=== PATIENT | male | born 1970 | race Caucasian/White ===

== ENCOUNTER 2018-03-29 15:04 | Emergency (ER) | payer SELFPAY ==
[2018-03-29] MEDS ORDERED: TETANUS & DIPHTHERIA TOX,ADULT 0.5 ML VIAL ONE (16:28)
[2018-03-29] MEDS ORDERED: HYDROCODONE/APAP 5/325 MG TAB ONE (16:28)
--- NOTE | 2018-03-29 17:15 | RAD REPORT ---
EXAM DESCRIPTION: RAD - Forearm Left - 03/29/2018 4:30 pm CLINICAL HISTORY: Fall, arm pain COMPARISON: None. FINDINGS: No fracture is identified. No dislocation or periosteal reaction. Advanced degenerative ch anges are present at the wrist joint only partially assessed on this study. No elevation of the poste rior fat pad at the elbow joint. No foreign body or other soft tissue abnormality. IMPRESSION: No fracture or acute forearm finding. Prominent degenerative change present at the wrist .
--- NOTE | 2018-03-29 17:19 | RAD REPORT ---
EXAM DESCRIPTION: RAD - Hand Left 3 View - 03/29/2018 4:29 pm CLINICAL HISTORY: Tree branch striking hand limited COMPARISON: None. FINDINGS: No acute fracture involving the phalanges or metacarpal bones. Prominent degenerative jerry ges are present in the second and third PIP joints. Advanced degenerative changes present at the firs t carpal -metacarpal articulation. Patient has advanced degenerative change in the carpal bones primarily involving the scaphoid and quin ate bones. Radiocarpal joint space is significantly narrowed. The scaphoid and lunate bones are seen is 3 fragmented bones rather than 2 bones. The metal fragment is suspected to be from the scaphoid. T here degenerative changes to all 3 bony structures. 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 An acute process is not suspected. Degenerative calcification is present along the dorsum of the wrist. Proximal aspect of the capitate is in close proximity to the radial articular laurent rface. No air or foreign body in the soft tissues. There is soft tissue swelling over the dorsum of the hand and wrist. IMPRESSION: No acute fracture changes seen. 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 No a cute component seen. Findings are detailed in the body of the report.
--- NOTE | 2018-03-29 17:44 | ER ---
Nurse's Notes [facility] Name: Andres Denton Age: 48 yrs Sex: Male : 1970 Arrival Date: 03/29/2018 Time: 15:07 Bed 15 Private MD: None, None Diagnosis: Contusion of left forearm;Abrasion of left forearm;Contusion of left hand;Abrasion of left hand Presentation: 03/29 15:15 Presenting complaint: Patient states: "a tree fell onto my arm". Pt c/o left arm pain, aa5 deformity noted to left FA, abrasions noted to left arm. Transition of care: patient was not received from another setting of care. Onset of symptoms was March 29, 2018. Risk Assessment: Do you want to hurt yourself or someone else? Patient reports no desire to harm self or others. Initial Sepsis Screen: Does the patient meet any 2 criteria? No. Patient's initial sepsis screen is negative. Does the patient have a suspected source of infection? No. Patient's initial sepsis screen is negative. Care prior to arrival: None. 15:15 Method Of Arrival: Ambulatory aa5 15:15 Acuity: ROBBY 3 aa5 Triage Assessment: 16:30 General: Appears in no apparent distress. comfortable. ch 16:30 General: Behavior is calm, cooperative, appropriate for age. Injury Description: ch Abrasion sustained to left hand and left forearm and left wrist. Historical: - Allergies: 15:17 No Known Allergies; aa5 - PMHx: 15:17 None; aa5 - PSHx: 15:17 Appendectomy; aa5 - Immunization history:: Last tetanus immunization: unknown. - Social history:: Smoking status: Patient uses tobacco products, smokes one pack cigarettes per day. - Ebola Screening: : No symptoms or risks identified at this time. Screenin:00 Abuse screen: Denies threats or abuse. Denies injuries from another. Nutritional ch screening: No deficits noted. Tuberculosis screening: No symptoms or risk factors identified. Fall Risk None identified. Assessment: 17:21 General: Appears in no apparent distress. comfortable, Behavior is calm, cooperative, ch appropriate for age. Pain: Complains of pain in left wrist, palmar aspect of left forearm and left forearm Pain currently is 6 out of 10 on a pain scale. Pain began suddenly. Neuro: No deficits noted. Respiratory: Airway is patent Breath sounds are clear bilaterally. GI: No signs and/or symptoms were reported involving the gastrointestinal system. Derm: Skin is pink, warm \\T\\ dry. pt has abrasions to L wrist. pt has swelling to L wrist, states it is chronic. Musculoskeletal: Capillary refill < 3 seconds, in bilateral fingers. Range of motion: limited in left wrist Swelling present in dorsum of left hand and dorsal aspect of left wrist. Vital Signs: 15:17 BP 132 / 83; Pulse 85; Resp 16 S; Temp 98.5(TE); Pulse Ox 97% on R/A; Weight 98.43 kg aa5 (R); Height 6 ft. 3 in. (190.50 cm) (R); Pain 6/10; 17:21 BP 126 / 84; Pulse 62; Resp 18; Temp 98.3; Pulse Ox 99% on R/A; Pain 5/10; ch 15:17 Body Mass Index 27.12 (98.43 kg, 190.50 cm) aa5 ED Course: 15:00 Patient has correct armband on for positive identification. Bed in low position. Call ch light in reach. Side rails up X 1. Adult w/ patient. 15:07 Patient arrived in ED. mr 15:07 None, None is Private Physician. mr 15:16 Triage completed. aa5 15:16 Arm band placed on. aa5 15:22 Walter De La Garza NP is PHCP. pm1 15:22 Major Langford MD is Attending Physician. pm1 15:58 Jagruti Amezquita, DARIEL is Primary Nurse. ch 16:28 Hand Left 3 View XRAY In Process Unspecified. EDMS 16:28 Forearm Left XRAY In Process Unspecified. EDMS 18:04 No apparent distress. Resting quietly. ch 18:04 No provider procedures requiring assistance completed. Patient did not have IV access ch during this emergency room visit. Dressings: non-adherent dressing x 2 dorsal aspect of left wrist. Wound care: to abrasion, located on left hand and left arm was cleaned with soap and water, dressed with Neosporin, 4X4s, hitesh wrap, Patient tolerated well. Thermoregulation: warm blanket given to patient. 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 Exp: ch 08/04/2019. Lot #: [id number]. } Route: IM; Site: left deltoid; 17:19 Follow up: Response: No adverse reaction; Marked relief of symptoms 17:15 Drug: [place] 5 mg-325 mg 1 tabs Route: PO; 17:30 Follow up: Response: No adverse reaction Outcome: 17:44 Discharge ordered by MD. pm1 18:05 Discharged to home ambulatory, with family. 18:05 Condition: stable 18:05 Discharge instructions given to patient, family, Instructed on discharge instructions, follow up and referral plans. medication usage, Demonstrated understanding of instructions, follow-up care, medications, Prescriptions given X 1. 18:15 Patient left the ED. Signatures: Dispatcher [employer] EDJagruti Abraham RN RN Kathy Meier Audri RN RN aa5 Walter De La Garza, HAZ TECH HAZ TECH pm1 Corrections: (The following items were deleted from the chart) 03/30 08:03/29 15:00 Abuse screen: Denies threats or abuse. Denies injuries from another. [facility] 03/30 08:03/29 15:00 Nutritional screening: No deficits noted. [facility] 03/30 08:36 03/29 15:00 Tuberculosis screening: No symptoms or risk factors identified. [facility] 03/30 08:03/29 15:00 Fall Risk None identified. [facility]
--- NOTE | 2018-03-29 17:44 | EDPHYS ---
Physician Documentation [facility] Name: Andres Denton Age: 48 yrs Sex: Male : 1970 Arrival Date: 03/29/2018 Time: 15:07 Bed 15 Private MD: None, None ED Physician Major Langford HPI: 03/29 18:00 This 48 yrs old Male presents to ER via Ambulatory with complaints of Arm pm1 Injury. 18:00 The patient or guardian complains of an abrasion, contusion. The complaints affect the pm1 dorsal aspect of left forearm and left hand. Context: The problem was sustained outdoors, at work, resulted from Tree branch fell on his left hand and forearm. Onset: The symptoms/episode began/occurred just prior to arrival. Treatment prior to arrival includes: no previous treatment. Modifying factors: The symptoms are alleviated by nothing. the symptoms are aggravated by nothing. Associated signs and symptoms: Pertinent positives: pain, Pertinent negatives: decreased range of motion, deformity. Severity of symptoms: in the emergency department the symptoms are unchanged. Patient with prior left hand deformity from prior injury multiple years ago. The patient has not recently seen a physician. Patient without any decreased range of motion to left hand and forearm. Historical: - Allergies: 15:17 No Known Allergies; aa5 - PMHx: 15:17 None; aa5 - PSHx: 15:17 Appendectomy; aa5 - Immunization history:: Last tetanus immunization: unknown. - Social history:: Smoking status: Patient uses tobacco products, smokes one pack cigarettes per day. - Ebola Screening: : No symptoms or risks identified at this time. ROS: 18:00 Constitutional: Negative for fever, chills, and weight loss, Eyes: Negative for injury, pm1 pain, redness, and discharge, ENT: Negative for injury, pain, and discharge, Neck: Negative for injury, pain, and swelling, Cardiovascular: Negative for chest pain, palpitations, and edema, Respiratory: Negative for shortness of breath, cough, wheezing, and pleuritic chest pain, Abdomen/GI: Negative for abdominal pain, nausea, vomiting, diarrhea, and constipation, Back: Negative for injury and pain. 18:00 Neuro: Negative for headache, weakness, numbness, tingling, and seizure. 18:00 MS/extremity: Positive for abrasion, pain, of the dorsum of left hand and dorsal aspect of left forearm, Negative for decreased range of motion. 18:00 Skin: Positive for abrasion(s), Negative for laceration(s), puncture. Exam: 18:00 Constitutional: This is a well developed, well nourished patient who is awake, alert, pm1 and in no acute distress. Head/Face: Normocephalic, atraumatic. Eyes: Pupils equal round and reactive to light, extra-ocular motions intact. Lids and lashes normal. Conjunctiva and sclera are non-icteric and not injected. Cornea within normal limits. Periorbital areas with no swelling, redness, or edema. ENT: Nares patent. No nasal discharge, no septal abnormalities noted. Tympanic membranes are normal and external auditory canals are clear. Oropharynx with no redness, swelling, or masses, exudates, or evidence of obstruction, uvula midline. Mucous membranes moist. Neck: Trachea midline, no thyromegaly or masses palpated, and no cervical lymphadenopathy. Supple, full range of motion without nuchal rigidity, or vertebral point tenderness. No Meningismus. Chest/axilla: Normal chest wall appearance and motion. Nontender with no deformity. No lesions are appreciated. Cardiovascular: Regular rate and rhythm with a normal S1 and S2. No gallops, murmurs, or rubs. Normal PMI, no JVD. No pulse deficits. Respiratory: Lungs have equal breath sounds bilaterally, clear to auscultation and percussion. No rales, rhonchi or wheezes noted. No increased work of breathing, no retractions or nasal flaring. Abdomen/GI: Soft, non-tender, with normal bowel sounds. No distension or tympany. No guarding or rebound. No evidence of tenderness throughout. Back: No spinal tenderness. No costovertebral tenderness. Full range of motion. 18:00 Musculoskeletal/extremity: Extremities: grossly normal except: noted in the dorsum of left hand: tenderness. 18:00 Skin: injury, abrasion(s), small abrasion noted, of the dorsum of left hand and dorsal aspect of left forearm. Vital Signs: 15:17 BP 132 / 83; Pulse 85; Resp 16 S; Temp 98.5(TE); Pulse Ox 97% on R/A; Weight 98.43 kg aa5 (R); Height 6 ft. 3 in. (190.50 cm) (R); Pain 6/10; 17:21 BP 126 / 84; Pulse 62; Resp 18; Temp 98.3; Pulse Ox 99% on R/A; Pain 5/10; ch 15:17 Body Mass Index 27.12 (98.43 kg, 190.50 cm) aa5 MDM: 15:23 Patient medically screened. pm1 17:36 Data reviewed: vital signs. Data interpreted: Pulse oximetry: on room air is 99 %. pm1 Interpretation: normal. Counseling: I had a detailed discussion with the patient and/or guardian regarding: the historical points, exam findings, and any diagnostic results supporting the discharge/admit diagnosis, radiology results, the need for outpatient follow up, to return to the emergency department if symptoms worsen or persist or if there are any questions or concerns that arise at home. 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 Exp: 08/04/2019. Lot #: [id number]. } Route: IM; Site: left deltoid; 17:19 Follow up: Response: No adverse reaction; Marked relief of symptoms 17:15 Drug: [place] 5 mg-325 mg 1 tabs Route: PO; 17:30 Follow up: Response: No adverse reaction Disposition: 03/30 08:16 Co-signature as Attending Physician, Major Langford MD I agree with the assessment and camron plan of care. Disposition: 03/29/18 17:44 Discharged to Home. Impression: Contusion of left forearm, Abrasion of left forearm, Contusion of left hand, Abrasion of left hand. - Condition is Stable. - Discharge Instructions: Abrasion, Contusion, Hand Contusion. - Prescriptions for Tramadol 50 mg Oral Tablet - take 1 tablet by ORAL route every 8 hours as needed; 12 tablet. - Work release form, Medication Reconciliation Form, Thank You Letter form. - Follow up: Emergency Department; When: As needed; Reason: Worsening of condition. Follow up: Private Physician; When: 2 - 3 days; Reason: Recheck today's complaints, Continuance of care, Re-evaluation by your physician. - Problem is new. - Symptoms have improved. Signatures: Dispatcher [employer] EDMS Jagruti Amezquita RN RN Major Murillo MD MD cha Calderon, Audri, RN RN aa5 Walter De La Garza NP CENTRAL OFFICE INSPECTOR pm1 Corrections: (The following items were deleted from the chart) 03/29 18:04 17:36 Splint - Wrist ordered. pm1 18:15 17:44 03/29/2018 17:44 Discharged to Home. Impression: Contusion of left forearm; ch Abrasion of left forearm; Contusion of left hand; Abrasion of left hand. Condition is Stable. Forms are Medication Reconciliation Form, Thank You Letter, Antibiotic Education, Prescription Opioid Use. Follow up: Emergency Department; When: As needed; Reason: Worsening of condition. Follow up: Private Physician; When: 2 - 3 days; Reason: Recheck today's complaints, Continuance of care, Re-evaluation by your physician. Problem is new. Symptoms have improved. pm1
== END 2018-03-29 18:15 | disposition home or self-care (01) ==
LOC: ER 15:04
DX: S50.12XA Contusion of left forearm, initial encounter (principal); S60.222A Contusion of left hand, initial encounter; F17.210 Nicotine dependence, cigarettes, uncomplicated; W20.8XXA Other cause of strike by thrown, projected or falling object, initial encounter; Y93.89 Activity, other specified; Y92.89 Other specified places as the place of occurrence of the external cause; Y99.0 Civilian activity done for income or pay
CPT/HCPCS: 90714; 99284